=== PATIENT | male | born 1955 | race Caucasian/White ===

== ENCOUNTER → 2019-03-23 | Outpatient (CLI) | payer MEDICARE | END | disposition home or self-care (01) | LOC: LABWHC1 10:32 | PROVIDERS: ATTEND Urology | DX: C61 Malignant neoplasm of prostate (principal) | CPT/HCPCS: 36415; 84153 ==

== ENCOUNTER → 2020-04-24 | Outpatient (CLI) | payer MEDICARE | END | disposition home or self-care (01) | LOC: LABWHC1 10:10 | PROVIDERS: ATTEND Urology | DX: C61 Malignant neoplasm of prostate (principal) | CPT/HCPCS: 36415; 84153 ==

== ENCOUNTER → 2021-04-29 | Outpatient (CLI) | payer MEDICARE | END | disposition home or self-care (01) | LOC: LABWHC1 09:40 | PROVIDERS: ATTEND Urology | DX: C61 Malignant neoplasm of prostate (principal) | CPT/HCPCS: 36415; 84153 ==

== ENCOUNTER → 2022-03-17 | Outpatient (CLI) | payer MEDICARE | END | disposition home or self-care (01) | LOC: LABWHC1 11:20 | PROVIDERS: ATTEND Internal Medicine | DX: U07.1 COVID-19 (principal) | CPT/HCPCS: U0003; C9803; U0005 ==

== ENCOUNTER → 2022-06-08 | Outpatient (CLI) | payer MEDICARE | END | disposition home or self-care (01) | LOC: LABWHC1 13:16 | PROVIDERS: ATTEND Urology | DX: C61 Malignant neoplasm of prostate (principal) | CPT/HCPCS: 36415; 84153 ==

== ENCOUNTER → 2023-06-14 | Outpatient (CLI) | payer MEDICARE | END | disposition home or self-care (01) | LOC: LABWHC1 14:04 | PROVIDERS: ATTEND Urology | DX: C61 Malignant neoplasm of prostate (principal) | CPT/HCPCS: 36415; 84153 ==

== ENCOUNTER → 2023-11-02 | Outpatient (CLI) | payer MEDICARE ==
--- NOTE | 2023-11-02 09:30 | US ---
EXAMINATION TYPE: US liver DATE OF EXAM: 11/02/2023 COMPARISON: NONE CLINICAL INDICATION: Male, 68 years old with history of R74.01 ELEVATION OF LEVELS OF LIVER TRANSAMIN ASE L; elevated liver enzymes TECHNIQUE: Multiple sonographic images of the right upper quadrant are obtained. FINDINGS: EXAM MEASUREMENTS: Liver Length: 16.6 cm Gallbladder Wall: 0.2 cm CBD: .5 cm Right Kidney: 8.7 x 4.1 x 4.8 cm Pancreas: Tail obscured by overlying bowel gas Liver: Increased echotexture. Gallbladder: No stones seen Evidence for sonographic Chuahan's sign: No CBD: wnl Right Kidney: Anechoic area lower pole 1.0 x 1.1 x 1.5 cm. IMPRESSION: Hepatic steatosis
== END | disposition home or self-care (01) ==
LOC: RADUSWWP 07:19
PROVIDERS: ATTEND Family Medicine
DX: K76.0 Fatty (change of) liver, not elsewhere classified (principal); R74.01 Elevation of levels of liver transaminase levels
CPT/HCPCS: 76705

== ENCOUNTER 2023-11-10 10:47 | Day surgery (SDC) | payer MEDICARE ==
[2023-11-09 12:28] VITALS: BMI 25.8
[~2023-11-10 10:47] MED LIST: LIDOCAINE 1% (10MG/ML) FOR IV START INTRADERMA PRN
[2023-11-10] MEDS: LACTATED RINGERS 1,000 ML IV SCH (11:14)
[2023-11-10 11:33] VITALS: TEMP 97.2
[2023-11-10] MEDS ORDERED: PROPOFOL 10 MG/ML 20 ML VIAL IV ONE (12:34)
--- NOTE | 2023-11-10 12:42 | P.PCN ---
Date of Procedure: 11/10/23 Procedure(s) Performed: BRIEF HISTORY: Patient is a 68-year-old, pleasant, white male male scheduled for an upper endoscopy as a part of evaluation of GERD and intermittent dysphagia to solids.. PROCEDURE PERFORMED: Esophagogastroduodenoscopy with biopsy. PREOPERATIVE DIAGNOSIS: GERD/intermittent dysphagia to solids. IV sedation per anesthesia. PROCEDURE: After informed consent was obtained, the patient was brought into the endoscopy unit. IV sedation was administered by Anesthesia under continuous monitoring. Initially the Olympus GIF-140 video endoscope was inserted into the mouth. Esophagus intubated without any difficulty. It was gradually advanced into the stomach and duodenum and carefully examined. The bulb and the second part of the duodenum appeared normal. The scope at this time was withdrawn to the stomach, adequately insufflated with air, and upon careful examination, mucosa of the antrum, body, cardia and the fundus appeared normal. The scope was then withdrawn into the esophagus. Mall hiatal hernia noted. The GE junction was located at 39 cm from the incisors. The esophagus appeared normal. There were no erosions or ulcerations seen and the patient tolerated the procedure well. IMPRESSION: 1. Small hiatal hernia. 2. No evidence of esophagitis or esophageal stricture. RECOMMENDATIONS: The findings of this examination were discussed with the patient as well as his family. He was advised to follow with the biopsy results. Continue with omeprazole 20 mg daily and follow antireflux measures..
[2023-11-10 13:24] VITALS: BP 143/86; PULSE 62
[2023-11-10 13:25] VITALS: RESP 16
== END 2023-11-10 13:43 | disposition home or self-care (01) ==
LOC: ORWHC2ENDO 10:47
PROVIDERS: ATTEND Internal Medicine Gastroenterology
DX: K21.00 Gastro-esophageal reflux disease with esophagitis, without bleeding (principal); K44.9 Diaphragmatic hernia without obstruction or gangrene; E78.5 Hyperlipidemia, unspecified; J44.89 Other specified chronic obstructive pulmonary disease; Z79.899 Other long term (current) drug therapy; Z88.1 Allergy status to other antibiotic agents; Z79.51 Long term (current) use of inhaled steroids
CPT/HCPCS: 88305; 43239; J2704

== ENCOUNTER 2024-01-23 22:10 | Emergency (ER) | payer MEDICARE ==
[2024-01-23 22:15] VITALS: TEMP 97.8
--- NOTE | 2024-01-23 22:48 | XR ---
EXAMINATION TYPE: XR chest 2V DATE OF EXAM: 01/23/2024 COMPARISON: NONE HISTORY: Dysrhythmia. TECHNIQUE: Frontal and lateral views of the chest are obtained. FINDINGS: Underlying emphysematous changes are present. There is no focal air space opacity, pleural effusion, or pneumothorax seen. The cardiac silhouette size is within normal limits. The osseous structures are intact. IMPRESSION: Chronic emphysematous changes without acute pulmonary process.
[2024-01-23 22:53] LABS: Basophils % (A) 1 %; Eosinophils # (A) 0.5 k/uL (0-0.7); Eosinophils % (A) 5 %; HCT 43.4 % (39.0-53.0); HGB 14.5 gm/dL (13.0-17.5); Lymphocytes # (A) 1.3 k/uL (1.0-4.8); Lymphocytes % (A) 15 %; MCH 36.1 pg (25.0-35.0); MCHC 33.4 g/dL (31.0-37.0); MCV 107.9 fL (80.0-100.0); Macrocytosis Moderate; Mean Platelet Volume 7.2; Monocytes # (A) 0.5 k/uL (0-1.0); Monocytes % (A) 6 %; Neutrophils # (A) 6.1 k/uL (1.3-7.7); Neutrophils % (A) 72 %; Platelet Count 258 k/uL (150-450); RBC 4.02 m/uL (4.30-5.90); WBC 8.6 k/uL (3.8-10.6)
[2024-01-23 23:01] LABS: INR 0.8 (<1.2); Partial Thromboplastin Time 23.4 sec (22.0-30.0); Prothrombin Time 9.5 sec (10.0-12.5)
[2024-01-23 23:09] LABS: ALT 54 U/L (4-49); African American GFR (CKD) 88 (>60 ml/min/1.73 sqM); Albumin 4.4 g/dL (3.5-5.0); Anion Gap 6 mmol/L; Blood Urea Nitrogen 15 mg/dL (9-20); Calcium 9.5 mg/dL (8.4-10.2); Carbon Dioxide 23 mmol/L (22-30); Chloride 104 mmol/L (98-107); Glucose 104 mg/dL (74-99); Non-African American GFR(CKD) 76 (>60 ml/min/1.73 sqM); Sodium 133 mmol/L (137-145); Total Bilirubin 0.8 mg/dL (0.2-1.3); Total Protein 6.8 g/dL (6.3-8.2)
[2024-01-23 23:14] LABS: AST 56 U/L (17-59); Alkaline Phosphatase 71 U/L (38-126); Potassium 4.2 mmol/L (3.5-5.1)
[2024-01-23] MEDS: methylPREDNISolone SOD SUCCI 125 MG/2 ML VIAL IV STA (23:44)
[2024-01-23] MEDS: SODIUM CHLORIDE 0.9% 1,000 ML IV STA (23:45)
[2024-01-23] MEDS: LORazepam 2 MG/ML INJ IV STA (23:45)
[2024-01-24 00:12] VITALS: BP 138/86; RESP 18
[2024-01-24] MEDS: IPRATROPIUM-ALBUTEROL 3 ML NEB INHALATION STA (00:25)
[2024-01-24 00:38] VITALS: PULSE 56
--- NOTE | 2024-01-24 00:46 | ED ---
General Adult HPI - General Chief complaint: Arrhythmia/Palpitations Stated complaint: High Heart Rate SOB Time Seen by Provider: 01/23/24 22:41 Source: patient, RN notes reviewed, old records reviewed Mode of arrival: ambulatory Limitations: no limitations - History of Present Illness Initial comments: Is a 69-year-old male who presents emergency department complaining of palpitations. They have been on and off for the last few months since he lost his . Patient's 3 months ago. States he has been drinking little bit more than normal, and also feels intermittently anxious. Has a history of asthma. Is chronically on inhalers at home. No cardiac history. Denies any matt chest pain. Denies any shortness of breath. Endorses chronic productive cough of white mucus. States symptoms have been worse when he is resting and improves when he is keeping busy. Is currently going through the process of selling his home and moving closer to family. States the symptoms have been somewhat worse over the last few days which is why presents for further evaluation at this time. Workup started in triage. I evaluated him when he was placed in a room. - Related Data Home Medications Medication Instructions Recorded Confirmed Albuterol Sulfate [Proair Hfa] 2 puff INHALATION RT-Q6H PRN 03/12/16 11/10/23 Budesonide/Formoterol Fumarate 2 puff INHALATION RT-BID 03/12/16 11/10/23 [Symbicort 80-4.5 Mcg Inhaler] Atorvastatin [Lipitor] 20 mg PO DAILY 11/09/23 11/10/23 Multivitamins, Thera [Multivitamin 1 tab PO DAILY 11/09/23 11/10/23 (formulary)] Omeprazole 20 mg PO DAILY 11/09/23 11/10/23 Previous Rx's Medication Instructions Recorded Doxycycline [Vibramycin] 100 mg PO BID 7 Days #14 capsule 01/24/24 LORazepam [Ativan] 0.5 mg PO BID PRN 3 Days #6 tab 01/24/24 predniSONE [Deltasone] 40 mg PO DAILY 5 Days #10 tab 01/24/24 Allergies Allergy/AdvReac Type Severity Reaction Status Date / Time azithromycin Allergy Chest Pain Verified 11/10/23 11:11 [From Zithromax Z-Jc] Review of Systems ROS Statement: Those systems with pertinent positive or pertinent negative responses have been documented in the HPI. Review of Systems: CONST: Denies fever EYES: Denies blurry vision ENT: Denies nasal congestion C/V: Endorses palpitations RESP: Denies shortness of breath GI: Denies abdominal pain : Denies dysuria SKIN: Denies rash. MSK: Denies joint pain. NEURO: Denies headache ROS Other: All systems not noted in ROS Statement are negative. Past Medical History Past Medical History: Asthma, Cancer, GERD/Reflux, Hyperlipidemia, Prostate Disorder Additional Past Medical History / Comment(s): migraines, prostate cancer, constipation History of Any Multi-Drug Resistant Organisms: None Reported Past Surgical History: Hernia Repair, Orthopedic Surgery, Tonsillectomy Additional Past Surgical History / Comment(s): macho shoulder surgery, nasal tony yps removed Past Anesthesia/Blood Transfusion Reactions: No Reported Reaction Past Psychological History: No Psychological Hx Reported Smoking Status: Former smoker Past Alcohol Use History: Rare Past Drug Use History: None Reported - Past Family History Mother Family Medical History: Cancer General Exam - General Exam Comments Initial Comments: General: Appears anxious HEAD: Normal with no signs of head trauma. EYES: PERRLA, EOMI, conjunctiva normal, no discharge. ENT: Hearing grossly intact, normal oropharynx. RESPIRATORY: End expiratory wheezing. No hypoxia. No increased work of breathing. C/V: Regular rate and rhythm. S1 and S2 auscultated, no edema, peripheral pulses 2+ and intact throughout ABD: Abd is soft, nontender, nondistended EXT: Normal range of motion, no obvious deformity SKIN: No rashes or lesions observed on exposed skin. NEURO: Alert and oriented x 4. Limitations: no limitations Course Vital Signs 01/23/24 01/24/24 01/24/24 22:12 00:11 00:26 Temperature 97.8 F Pulse Rate 76 68 63 Respiratory 20 18 Rate Blood Pressure 160/83 138/86 O2 Sat by Pulse 98 100 Oximetry Medical Decision Making - Medical Decision Making Was pt. sent in by a medical professional or institution (, PA, DIRECTOR CARD, urgent care, hospital, or [facility]...) When possible be specific @ -No Did you speak to anyone other than the patient for history (EMS, parent, family, police, friend...)? What history was obtained from this source @ -No Did you review nursing and triage notes (agree or disagree)? Why? @ -I reviewed and agree with nursing and triage notes Were old charts reviewed (outside hosp., previous admission, EMS record, old EKG , old radiological studies, urgent care reports/EKG's, [facility] records)? Report findings @ -No old charts were reviewed Differential Diagnosis (chest pain, altered mental status, abdominal pain women, abdominal pain men, vaginal bleeding, weakness, fever, dyspnea, syncope, headache, dizziness, GI bleed, back pain, seizure, CVA, palpatations, mental health, musculoskeletal)? @ -Differential Palpitations Ventricular arrhythmias, atrial arrhythmias, myocardial infarction, anemia, thyrotoxicosis, electrolyte imbalance, hypokalemia, pulmonary embolism, pulmonary disease, drugs, alcohol, anxiety, stress.... This is not meant to be an all-inclusive list. EKG interpreted by me (3pts min.). @ -As above X-rays interpreted by me (1pt min.). @ -Chest x-ray reveals no obvious acute cardiopulmonary process. Chronic changes and emphysema present. CT interpreted by me (1pt min.). @ -None done U/S interpreted by me (1pt. min.). @ -None done What testing was considered but not performed or refused? (CT, X-rays, U/S, labs)? Why? @ -None What meds were considered but not given or refused? Why? @ -None Did you discuss the management of the patient with other professionals (professionals i.e. , PA, DIRECTOR CARD, lab, RT, psych nurse, manager social services, catering sales manager, teacher, escrow officer, binder caser)? Give summary @ -No Was smoking cessation discussed for >3mins.? @ -No Was critical care preformed (if so, how long)? @ -No Were there social determinants of health that impacted care today? How? (Homelessness, low income, unemployed, alcoholism, drug addiction, transportation, low edu. Level, literacy, decrease access to med. care, penitentiary, rehab)? @ -No Was there de-escalation of care discussed even if they declined (Discuss DNR or withdrawal of care, Hospice)? DNR status @ -No What co-morbidities impacted this encounter? (DM, HTN, Smoking, COPD, CAD, Cancer, CVA, ARF, Chemo, Hep., AIDS, mental health diagnosis, sleep apnea, morbid obesity)? @ -None Was patient admitted / discharged? Hospital course, mention meds given and route, prescriptions, significant lab abnormalities, going to OR and other pertinent info. @ -Patient presents with what appears to be anxiety as well as asthma. Has been having palpitations on and off worse when he is resting since his 3 months ago. Workup was started in triage and including cardiac workup. I am in agreement with this plan. Labs are pending. He will be symptomatically treat with IV Ativan, as well as Solu-Medrol, fluids. He will also be given a breathing treatment. Patient was in agreement this plan.Patient is not having any chest pain. Discomfort is purely palpitations. EKG shows no signs of acute ischemia. Chest x-ray unremarkable. Laboratory studies remarkable for an undetectable troponin. Remainder the labs unremarkable. On reevaluation, patient is feeling improved. Wheezing is improved. I discussed results with the patient. I strongly believe he is experiencing anxiety and he is in agreement with this. I recommended follow-up with his PCP and supported the decision to move closer to family. He was in agreement this plan. I will symptomatically treat him for asthma with a productive cough with a doxycycline as well as prednisone and he already has inhalers. He was in agreement this plan. He also be given a short course of Ativan prescription for home. He was in agreement this plan. I will provide the patient with a prescription for prednisone, Ativan, doxycycline. I instructed the patient to follow up with their PCP in the next 1- 3 days.. I explained that the patient should return to the emergency department if they experience any worsening symptoms. Strict return precautions were discussed with the patient. The patient expressed understanding of these instructions. I answered all questions that the patient had. The patient was discharged home in good condition with their prescriptions and follow up information. Undiagnosed new problem with uncertain prognosis? @ -No Drug Therapy requiring intensive monitoring for toxicity (Heparin, Nitro, Insulin, Cardizem)? @ -No Were any procedures done? @ -No Diagnosis/symptom? @ -Anxiety, heart palpitations, asthma exacerbation Acute, or Chronic, or Acute on Chronic? @ -Acute on chronic Uncomplicated (without systemic symptoms) or Complicated (systemic symptoms)? @ -Complicated Side effects of treatment? @ -No Exacerbation, Progression, or Severe Exacerbation? @ -No Poses a threat to life or bodily function? How? (Chest pain, [place], [place], pneumonia, PE, COPD, DKA, ARF, appy, cholecystitis, CVA, Diverticulitis, Homicidal, Suicidal, threat to staff... and all critical care pts) @ -Unlikely - Lab Data Result diagrams: 01/23/24 22:17 01/23/24 22:17 Lab Results 01/23/24 01/23/24 01/23/24 Range/Units 22:17 22:17 22:17 WBC 8.6 (3.8-10.6) k/uL RBC 4.02 L (4.30-5.90) m/uL Hgb 14.5 (13.0-17.5) gm/dL Hct 43.4 (39.0-53.0) % MCV 107.9 H (80.0-100.0) fL MCH 36.1 H (25.0-35.0) pg MCHC 33.4 (31.0-37.0) g/dL RDW 13.0 (11.5-15.5) % Plt Count 258 (150-450) k/uL MPV 7.2 Neutrophils % 72 % Lymphocytes % 15 % Monocytes % 6 % Eosinophils % 5 % Basophils % 1 % Neutrophils # 6.1 (1.3-7.7) k/uL Lymphocytes # 1.3 (1.0-4.8) k/uL Monocytes # 0.5 (0-1.0) k/uL Eosinophils # 0.5 (0-0.7) k/uL Basophils # 0.0 (0-0.2) k/uL Macrocytosis Moderate PT 9.5 L (10.0-12.5) sec INR 0.8 (<1.2) APTT 23.4 (22.0-30.0) sec Sodium 133 L (137-145) mmol/L Potassium 4.2 (3.5-5.1) mmol/L Chloride 104 (98-107) mmol/L Carbon Dioxide 23 (22-30) mmol/L Anion Gap 6 mmol/L BUN 15 (9-20) mg/dL Creatinine 1.00 (0.66-1.25) mg/dL Est GFR (CKD-EPI)AfAm 88 (>60 ml/min/1.73 sqM) Est GFR (CKD-EPI)NonAf 76 (>60 ml/min/1.73 sqM) Glucose 104 H (74-99) mg/dL Calcium 9.5 (8.4-10.2) mg/dL Magnesium 2.0 (1.6-2.3) mg/dL Total Bilirubin 0.8 (0.2-1.3) mg/dL AST 56 (17-59) U/L ALT 54 H (4-49) U/L Alkaline Phosphatase 71 (38-126) U/L Troponin I (0.000-0.034) ng/mL Total Protein 6.8 (6.3-8.2) g/dL Albumin 4.4 (3.5-5.0) g/dL 01/23/24 Range/Units 22:17 WBC (3.8-10.6) k/uL RBC (4.30-5.90) m/uL Hgb (13.0-17.5) gm/dL Hct (39.0-53.0) % MCV (80.0-100.0) fL MCH (25.0-35.0) pg MCHC (31.0-37.0) g/dL RDW (11.5-15.5) % Plt Count (150-450) k/uL MPV Neutrophils % % Lymphocytes % % Monocytes % % Eosinophils % % Basophils % % Neutrophils # (1.3-7.7) k/uL Lymphocytes # (1.0-4.8) k/uL Monocytes # (0-1.0) k/uL Eosinophils # (0-0.7) k/uL Basophils # (0-0.2) k/uL Macrocytosis PT (10.0-12.5) sec INR (<1.2) APTT (22.0-30.0) sec Sodium (137-145) mmol/L Potassium (3.5-5.1) mmol/L Chloride (98-107) mmol/L Carbon Dioxide (22-30) mmol/L Anion Gap mmol/L BUN (9-20) mg/dL Creatinine (0.66-1.25) mg/dL Est GFR (CKD-EPI)AfAm (>60 ml/min/1.73 sqM) Est GFR (CKD-EPI)NonAf (>60 ml/min/1.73 sqM) Glucose (74-99) mg/dL Calcium (8.4-10.2) mg/dL Magnesium (1.6-2.3) mg/dL Total Bilirubin (0.2-1.3) mg/dL AST (17-59) U/L ALT (4-49) U/L Alkaline Phosphatase (38-126) U/L Troponin I <0.012 (0.000-0.034) ng/mL Total Protein (6.3-8.2) g/dL Albumin (3.5-5.0) g/dL - EKG Data -: EKG Interpreted by Me EKG Comments: 12-lead Electrocardiogram Interpretation Note EKG was reviewed and interpreted by myself. 12-lead ECG performed at 2309 is interpreted by me as revealing normal sinus rhythm at a rate of 61 beats per minute. [place] is normal. DE interval is 161 ms, QRS duration is 101 ms, QTc is 428 ms.. There were no ST or T wave abnormalities to suggest myocardial ischemia or injury. R wave progression across the precordium was satisfactory. By my interpretation this EKG is non-diagnostic for acute ischemia. Disposition Clinical Impression: Heart palpitations, Asthma, Anxiety Disposition: HOME SELF-CARE Condition: Good Instructions (If sedation given, give patient instructions): Heart Palpitations (ED), Asthma (ED), Anxiety (ED) Prescriptions: LORazepam [Ativan] 0.5 mg PO BID PRN 3 Days #6 tab PRN Reason: Anxiety predniSONE [Deltasone] 40 mg PO DAILY 5 Days #10 tab Doxycycline [Vibramycin] 100 mg PO BID 7 Days #14 capsule Is patient prescribed a controlled substance at d/c from ED?: No Referrals: Bulmaro Dudley MD [Primary Care Provider] - 1-2 days Forms: Outpatient Therapy List Time of Disposition: 00:40
--- NOTE | 2024-01-24 00:48 | ED ---
Medical Decision Making - Lab Data Result diagrams: 01/23/24 22:17 01/23/24 22:17 Lab Results 01/23/24 01/23/24 01/23/24 Range/Units 22:17 22:17 22:17 WBC 8.6 (3.8-10.6) k/uL RBC 4.02 L (4.30-5.90) m/uL Hgb 14.5 (13.0-17.5) gm/dL Hct 43.4 (39.0-53.0) % MCV 107.9 H (80.0-100.0) fL MCH 36.1 H (25.0-35.0) pg MCHC 33.4 (31.0-37.0) g/dL RDW 13.0 (11.5-15.5) % Plt Count 258 (150-450) k/uL MPV 7.2 Neutrophils % 72 % Lymphocytes % 15 % Monocytes % 6 % Eosinophils % 5 % Basophils % 1 % Neutrophils # 6.1 (1.3-7.7) k/uL Lymphocytes # 1.3 (1.0-4.8) k/uL Monocytes # 0.5 (0-1.0) k/uL Eosinophils # 0.5 (0-0.7) k/uL Basophils # 0.0 (0-0.2) k/uL Macrocytosis Moderate PT 9.5 L (10.0-12.5) sec INR 0.8 (<1.2) APTT 23.4 (22.0-30.0) sec Sodium 133 L (137-145) mmol/L Potassium 4.2 (3.5-5.1) mmol/L Chloride 104 (98-107) mmol/L Carbon Dioxide 23 (22-30) mmol/L Anion Gap 6 mmol/L BUN 15 (9-20) mg/dL Creatinine 1.00 (0.66-1.25) mg/dL Est GFR (CKD-EPI)AfAm 88 (>60 ml/min/1.73 sqM) Est GFR (CKD-EPI)NonAf 76 (>60 ml/min/1.73 sqM) Glucose 104 H (74-99) mg/dL Calcium 9.5 (8.4-10.2) mg/dL Magnesium 2.0 (1.6-2.3) mg/dL Total Bilirubin 0.8 (0.2-1.3) mg/dL AST 56 (17-59) U/L ALT 54 H (4-49) U/L Alkaline Phosphatase 71 (38-126) U/L Troponin I (0.000-0.034) ng/mL Total Protein 6.8 (6.3-8.2) g/dL Albumin 4.4 (3.5-5.0) g/dL 01/23/24 Range/Units 22:17 WBC (3.8-10.6) k/uL RBC (4.30-5.90) m/uL Hgb (13.0-17.5) gm/dL Hct (39.0-53.0) % MCV (80.0-100.0) fL MCH (25.0-35.0) pg MCHC (31.0-37.0) g/dL RDW (11.5-15.5) % Plt Count (150-450) k/uL MPV Neutrophils % % Lymphocytes % % Monocytes % % Eosinophils % % Basophils % % Neutrophils # (1.3-7.7) k/uL Lymphocytes # (1.0-4.8) k/uL Monocytes # (0-1.0) k/uL Eosinophils # (0-0.7) k/uL Basophils # (0-0.2) k/uL Macrocytosis PT (10.0-12.5) sec INR (<1.2) APTT (22.0-30.0) sec Sodium (137-145) mmol/L Potassium (3.5-5.1) mmol/L Chloride (98-107) mmol/L Carbon Dioxide (22-30) mmol/L Anion Gap mmol/L BUN (9-20) mg/dL Creatinine (0.66-1.25) mg/dL Est GFR (CKD-EPI)AfAm (>60 ml/min/1.73 sqM) Est GFR (CKD-EPI)NonAf (>60 ml/min/1.73 sqM) Glucose (74-99) mg/dL Calcium (8.4-10.2) mg/dL Magnesium (1.6-2.3) mg/dL Total Bilirubin (0.2-1.3) mg/dL AST (17-59) U/L ALT (4-49) U/L Alkaline Phosphatase (38-126) U/L Troponin I <0.012 (0.000-0.034) ng/mL Total Protein (6.3-8.2) g/dL Albumin (3.5-5.0) g/dL Disposition Clinical Impression: Heart palpitations, Asthma, Anxiety Disposition: HOME SELF-CARE Condition: Good Instructions (If sedation given, give patient instructions): Heart Palpitations (ED), Asthma (ED), Anxiety (ED) Prescriptions: LORazepam [Ativan] 0.5 mg PO BID PRN 3 Days #6 tab PRN Reason: Anxiety predniSONE [Deltasone] 40 mg PO DAILY 5 Days #10 tab Doxycycline [Vibramycin] 100 mg PO BID 7 Days #14 capsule Is patient prescribed a controlled substance at d/c from ED?: Yes When asked, does pt state using other controlled substances?: No If prescribed controlled substance>3 days was MAPS reviewed?: Prescribed <3 Days Referrals: Bulmaro Dudley MD [Primary Care Provider] - 1-2 days Forms: Outpatient Therapy List
[2024-01-24] MEDS: DOXYCYCLINE 100 MG CAP PO STA (01:04)
== END 2024-01-24 01:05 | disposition home or self-care (01) ==
LOC: EC 22:10
DX: R11.2 Nausea with vomiting, unspecified (principal); F17.200 Nicotine dependence, unspecified, uncomplicated; F12.90 Cannabis use, unspecified, uncomplicated
CPT/HCPCS: 36415; 94640; 93005; 80053; 83735; 84484; 85025; 85610; 85730; 71046; 99284; 96374; 96375; 96376; 96361; J2060; J2919

== ENCOUNTER 2024-05-13 16:31 | Emergency (ER) | payer MEDICARE ==
[2024-05-13] MEDS: KETOROLAC 15 MG/ML 1 ML VIAL IM STA (17:07)
[2024-05-13] MEDS: methocarbamoL 500 MG TAB PO STA (17:07)
[2024-05-13] MEDS: LIDOCAINE 4% PATCH TOPICAL ONE (17:09)
--- NOTE | 2024-05-13 17:37 | CT ---
EXAMINATION TYPE: CT abdomen pelvis wo con CT DLP: 441.1 mGycm, Automated exposure control for dose reduction was used. DATE OF EXAM: 05/13/2024 5:22 PM COMPARISON: Ultrasound 11/02/2023 CLINICAL INDICATION: Male, 69 years old with history of Right flank pain; Right flank pain x 3 days TECHNIQUE: Axial CT abdomen pelvis wo con;Sagittal and coronal reformats were created on a separate workstation. Contrast used: mL of , (none if empty) Oral contrast used: without Oral Contrast (none if empty) FINDINGS: LOWER CHEST: Which valve annular calcifications. ABDOMEN LIVER: Diffusely hypoattenuating parenchyma. GALLBLADDER AND BILE DUCTS: Unremarkable. PANCREAS: Unremarkable. SPLEEN: Unremarkable. ADRENAL GLANDS: Unremarkable. KIDNEYS AND URETERS: No evidence of hydronephrosis or renal calculus. The ureters are unremarkable. Probable left exophytic renal cyst. PELVIS BLADDER: Unremarkable mild circumferential wall thickening with some adjacent fat stranding. REPRODUCTIVE: Unremarkable. ABDOMEN & PELVIS STOMACH AND BOWEL: No evidence of bowel obstruction. The appendix is normal PERITONEUM/RETROPERITONEUM: No evidence of pneumoperitoneum or free fluid. VASCULATURE: Fusiform dilation of the infrarenal abdominal aorta measuring up to 31 mm. MUSCULOSKELETAL: No acute osseous abnormalities. Mild disc degeneration changes are present throughou t the thoracolumbar spine. LYMPH NODES: No gross evidence for lymphadenopathy. SOFT TISSUE/ABDOMINAL WALL: Fat-containing umbilical hernia. IMPRESSION: 1. Mild Fat stranding changes around the urinary bladder correlate with urinalysis for cystitis. No additional evidence for acute right abdominal process to explain the patient's pain, the appendix is normal, no obstructive uropathy. No renal calculi visualized. 2. Infrarenal abdominal aortic aneurysmal dilation up to 31 mm. 3. Mild hepatic steatosis. [facility], , 05/13/2024 5:34 PM
--- NOTE | 2024-05-13 17:52 | ED ---
Back Pain HPI - General Chief Complaint: Back Pain/Injury Stated Complaint: back pain Time Seen by Provider: 05/13/24 16:46 Source: patient, RN notes reviewed Mode of arrival: ambulatory Limitations: no limitations - History of Present Illness Initial Comments: This is a 69-year-old male who presents to the emergency department for right mid back pain. States that it started 2 days ago, but seemed to get worse. He has been doing a lot of bending and lifting because he is in the process of moving, and wonders if he may have strained a muscle. Pain does not wrap around into the abdomen. Denies any nausea or vomiting. Denies any loss of bowel/bladder control. He has not yet taken anything for his pain. MD Complaint: back pain - Related Data Home Medications Medication Instructions Recorded Confirmed Albuterol Sulfate [Proair Hfa] 2 puff INHALATION RT-Q6H PRN 03/12/16 11/10/23 Budesonide/Formoterol Fumarate 2 puff INHALATION RT-BID 03/12/16 11/10/23 [Symbicort 80-4.5 Mcg Inhaler] Atorvastatin [Lipitor] 20 mg PO DAILY 11/09/23 11/10/23 Multivitamins, Thera [Multivitamin 1 tab PO DAILY 11/09/23 11/10/23 (formulary)] Omeprazole 20 mg PO DAILY 11/09/23 11/10/23 Previous Rx's Medication Instructions Recorded Doxycycline [Vibramycin] 100 mg PO BID 7 Days #14 capsule 01/24/24 LORazepam [Ativan] 0.5 mg PO BID PRN 3 Days #6 tab 01/24/24 predniSONE [Deltasone] 40 mg PO DAILY 5 Days #10 tab 01/24/24 Lidocaine 5% Patch [Lidoderm 5% 1 patch TOPICAL DAILY PRN #30 patch 05/13/24 Patch] Meloxicam [Mobic] 15 mg PO DAILY PRN #30 tab 05/13/24 methocarbamoL [Robaxin-750] 1,500 mg PO TID PRN #30 tab 05/13/24 Allergies Allergy/AdvReac Type Severity Reaction Status Date / Time azithromycin Allergy Chest Pain Verified 05/13/24 16:40 [From Zithromax Z-Jc] Review of Systems ROS Statement: Those systems with pertinent positive or pertinent negative responses have been documented in the HPI. ROS Other: All systems not noted in ROS Statement are negative. Past Medical History Past Medical History: Asthma, Cancer, GERD/Reflux, Hyperlipidemia, Prostate Disorder Additional Past Medical History / Comment(s): migraines, prostate cancer, constipation History of Any Multi-Drug Resistant Organisms: None Reported Past Surgical History: Hernia Repair, Orthopedic Surgery, Tonsillectomy Additional Past Surgical History / Comment(s): macho shoulder surgery, nasal polyps removed Past Anesthesia/Blood Transfusion Reactions: No Reported Reaction Past Psychological History: No Psychological Hx Reported Smoking Status: Former smoker Past Alcohol Use History: Rare Past Drug Use History: None Reported - Past Family History Mother Family Medical History: Cancer General Exam Limitations: no limitations General appearance: alert, in no apparent distress Head exam: Present: atraumatic, normocephalic, normal inspection Respiratory exam: Present: normal lung sounds bilaterally. Absent: respiratory distress, wheezes, rales, rhonchi, stridor Cardiovascular Exam: Present: regular rate, normal rhythm, normal heart sounds. Absent: systolic murmur, diastolic murmur, rubs, gallop, clicks GI/Abdominal exam: Present: soft, normal bowel sounds. Absent: distended, tenderness, guarding, rebound, rigid Back exam: Present: CVA tenderness (R). Absent: CVA tenderness (L) Neurological exam: Present: alert, oriented X3, CN II-XII intact Psychiatric exam: Present: normal affect, normal mood Skin exam: Present: warm, dry, intact, normal color. Absent: rash Course Vital Signs 05/13/24 05/13/24 16:36 18:36 Temperature 97.9 F 98.0 F Pulse Rate 107 H 86 Respiratory 16 18 Rate Blood Pressure 126/69 130/76 O2 Sat by Pulse 96 97 Oximetry Medical Decision Making - Medical Decision Making This is a 69-year-old male who presents to the emergency department for back pain. Was pt. sent in by a medical professional or institution? @ -No Did you speak to anyone other than the patient for history? @ -No Did you review nursing and triage notes? @ -Yes, and I agree, it is accurate with regards to the patient's symptoms. Were old charts reviewed? @ -No Differential Diagnosis? @ -Differential Back Pain: Strain, zoster, cauda equina syndrome, epidural abscess, vertebral osteomyelitis, discitis, fracture, subluxation, disc herniation, DJD, spinal stenosis, dissection, AAA, pancreatitis, peptic ulcer disease, pyelonephritis, kidney stone, this is not meant to be an all-inclusive list. EKG interpreted by me (3pts min.)? @ -Not obtained X-rays interpreted by me (1pt min.)? @ -Not obtained CT interpreted by me (1pt min.)? @ -CT scan of the abdomen and pelvis obtained. My interpretation identifies no evidence of a ureteral calculus. U/S interpreted by me (1pt. min.)? @ -Not obtained What testing was considered but not performed? (CT, X-rays, U/S, labs)? Why? @ -None What meds were considered but not given? Why? @ -None Did you discuss the management of the patient with other professionals? @ -No Did you reconcile home meds? @ -No Was smoking cessation discussed for >3mins.? @ -No Was critical care preformed (if so, how long)? @ -No Were there social determinants of health that impacted care today? How? (Homelessness, low income, unemployed, alcoholism, drug addiction, transportation, low edu. Level, literacy, decrease access to med. care, assisted, rehab)? @ -No Was there de-escalation of care discussed even if they declined? (Discuss DNR or withdrawal of care, Hospice)? @ -No What co-morbidities impacted this encounter? (DM, HTN, Smoking, COPD, CAD, Cancer, CVA, Hep., AIDS, mental health diagnosis, sleep apnea, morbid obesity)? @ -None Was patient admitted / discharged? @ -Discharged. Given that pain was in the right flank region, we obtained a urinalysis and CT scan. Urinalysis was negative for signs of infection. Moderate blood was noted, however there was no elevation in RBCs. CT scan of the abdomen and pelvis had some changes around the bladder and they advised correlation for cystitis on UA. UA was negative for signs of infection. No other acute process was identified. Given that symptoms are worse with movement and to the touch, and started after doing a lot of physical activity in the process of moving, advised that this is likely musculoskeletal in nature. Pain was managed in the emergency department. Prescription for Mobic, Robaxin, and lidocaine patches provided. Patient discharged home in stable condition. Case discussed with ED attending Dr. Capone. Return precautions reviewed in depth, the patient is instructed to return to the emergency department with any new, worsening, or concerning symptoms. Patient verbalized understanding. Undiagnosed new problem with uncertain prognosis? @ -None Drug Therapy requiring intensive monitoring for toxicity (Heparin, Nitro, Insulin, Cardizem)? @ -None Were any procedures done? @ -None Diagnosis/symptom? @ -Back strain Acute, or Chronic, or Acute on Chronic? @ -Acute Uncomplicated (without systemic symptoms) or Complicated (systemic symptoms)? @ -Uncomplicated Side effects of treatment? @ -None Exacerbation, Progression, or Severe Exacerbation] @ -Not applicable Poses a threat to life or bodily function? @ -No - Lab Data Lab Results 05/13/24 Range/Units 18:00 Urine Color Yellow Urine Appearance Cloudy (Clear) Urine pH 5.0 (5.0-8.0) Ur Specific [place] 1.019 (1.001-1.035) Urine Protein Trace H (Negative) Urine Glucose (UA) Negative (Negative) Urine Ketones Trace H (Negative) Urine Blood Moderate H (Negative) Urine Nitrite Negative (Negative) Urine Bilirubin Negative (Negative) Urine Urobilinogen 2.0 (<2.0) mg/dL Ur Leukocyte Esterase Negative (Negative) Urine RBC 4 (0-5) /hpf Urine WBC 5 (0-5) /hpf Ur Squamous Epith Cells 1 (0-4) /hpf Hyaline Casts 91 H (0-2) /lpf Urine Mucus Many H (None) /hpf - Radiology Data Radiology results: report reviewed, image reviewed Disposition Clinical Impression: Back strain Disposition: HOME SELF-CARE Instructions (If sedation given, give patient instructions): Low Back Strain (ED), Thoracic Back Strain (ED) Additional Instructions: Return to the emergency department with any new, worsening, or concerning symptoms. Take the Mobic once daily for pain relief. Do not take any other anti-inflammatories such as ibuprofen if you choose to take this, take one or the other. You may take it with Tylenol. Take the Robaxin as 1 to 2 tablets up to 3-4 times daily. Be aware that this may make you drowsy. You can also apply the lidocaine patches daily. Follow up with your primary care provider in 1-2 days. Prescriptions: Lidocaine 5% Patch [Lidoderm 5% Patch] 1 patch TOPICAL DAILY PRN #30 patch PRN Reason: Pain Meloxicam [Mobic] 15 mg PO DAILY PRN #30 tab PRN Reason: Pain methocarbamoL [Robaxin-750] 1,500 mg PO TID PRN #30 tab PRN Reason: Pain Is patient prescribed a controlled substance at d/c from ED?: No Referrals: Bulmaro Dudley MD [Primary Care Provider] - 1-2 days Time of Disposition: 18:14
[2024-05-13 18:05] LABS: Appearance,Urine Cloudy (Clear); Bilirubin,Urine Negative (Negative); Blood,Urine Moderate (Negative); Color,Urine Yellow; Glucose,Urine (UA) Negative (Negative); Hyaline Casts,Urine 91 /lpf (0-2); Ketones,Urine Trace (Negative); Leukocyte Esterase,Urine Negative (Negative); Mucus,Urine Many /hpf; Nitrite,Urine Negative (Negative); Protein,Urine Trace (Negative); RBC,Urine 4 /hpf (0-5); Specific Gravity,Urine 1.019 (1.001-1.035); Squamous Epithelial Cell,Urine 1 /hpf (0-4); WBC,Urine 5 /hpf (0-5)
[2024-05-13] MEDS: DEXAMETHASONE SOD PHOSPHATE 10 MG/ML 1 ML VIAL IM STA (18:22)
[2024-05-13] MEDS: ACET/COD 300 MG/30 MG STARTER PACK 6 TAB BTL PO STA (18:22)
[2024-05-13 18:38] VITALS: BP 130/76; PULSE 86; RESP 18; TEMP 98
== END 2024-05-13 18:38 | disposition home or self-care (01) ==
LOC: EC 16:31
DX: R53.1 Weakness
CPT/HCPCS: 74176; 81001; 99284

== ENCOUNTER 2024-05-15 06:57 | Emergency (ER) | payer MEDICARE ==
[2024-05-15 07:03] VITALS: PULSE 76; RESP 18
--- NOTE | 2024-05-15 07:27 | ED ---
Back Pain HPI - General Chief Complaint: Back Pain/Injury Stated Complaint: Back Pain Time Seen by Provider: 05/15/24 07:10 Source: patient, RN notes reviewed Limitations: no limitations - History of Present Illness Initial Comments: 69-year-old male presents emergency department with chief complaint of low back pain. He was seen here few days ago for similar complaints. States that he has had increasing pain. He denies any bowel, bladder incontinence or retention no saddle anesthesias. Patient states that he has no pain at radiates down his legs he has no lower extremity weakness. Patient has no abdominal complaints. Patient offers no other complaints. - Related Data Home Medications Medication Instructions Recorded Confirmed Albuterol Sulfate [Proair Hfa] 2 puff INHALATION RT-Q6H PRN 03/12/16 11/10/23 Budesonide/Formoterol Fumarate 2 puff INHALATION RT-BID 03/12/16 11/10/23 [Symbicort 80-4.5 Mcg Inhaler] Atorvastatin [Lipitor] 20 mg PO DAILY 11/09/23 11/10/23 Multivitamins, Thera [Multivitamin 1 tab PO DAILY 11/09/23 11/10/23 (formulary)] Omeprazole 20 mg PO DAILY 11/09/23 11/10/23 Previous Rx's Medication Instructions Recorded Doxycycline [Vibramycin] 100 mg PO BID 7 Days #14 capsule 01/24/24 LORazepam [Ativan] 0.5 mg PO BID PRN 3 Days #6 tab 01/24/24 predniSONE [Deltasone] 40 mg PO DAILY 5 Days #10 tab 01/24/24 Lidocaine 5% Patch [Lidoderm 5% 1 patch TOPICAL DAILY PRN #30 patch 05/13/24 Patch] Meloxicam [Mobic] 15 mg PO DAILY PRN #30 tab 05/13/24 methocarbamoL [Robaxin-750] 1,500 mg PO TID PRN #30 tab 05/13/24 Allergies Allergy/AdvReac Type Severity Reaction Status Date / Time azithromycin Allergy Chest Pain Verified 05/15/24 07:00 [From Zithromax Z-Jc] Review of Systems ROS Statement: Those systems with pertinent positive or pertinent negative responses have been documented in the HPI. ROS Other: All systems not noted in ROS Statement are negative. Past Medical History Past Medical History: Asthma, Cancer, GERD/Reflux, Hyperlipidemia, Prostate Disorder Additional Past Medical History / Comment(s): migraines, prostate cancer, constipation History of Any Multi-Drug Resistant Organisms: None Reported Past Surgical History: Hernia Repair, Orthopedic Surgery, Tonsillectomy Additional Past Surgical History / Comment(s): macho shoulder surgery, nasal polyps removed Past Anesthesia/Blood Transfusion Reactions: No Reported Reaction Past Psychological History: No Psychological Hx Reported Smoking Status: Former smoker Past Alcohol Use History: Rare Past Drug Use History: None Reported - Past Family History Mother Family Medical History: Cancer General Exam Limitations: no limitations General appearance: alert, in no apparent distress Head exam: Present: atraumatic, normocephalic, normal inspection Respiratory exam: Present: normal lung sounds bilaterally. Absent: respiratory distress, wheezes, rales, rhonchi, stridor Cardiovascular Exam: Present: regular rate, normal rhythm, normal heart sounds. Absent: systolic murmur, diastolic murmur, rubs, gallop, clicks GI/Abdominal exam: Present: soft, normal bowel sounds. Absent: distended, tenderness, guarding, rebound, rigid Extremities exam: Present: normal inspection, full ROM, normal capillary refill. Absent: tenderness, pedal edema, joint swelling, calf tenderness Back exam: Present: normal inspection, full ROM, tenderness, paraspinal tenderness, vertebral tenderness Course Vital Signs 05/15/24 07:01 Temperature 97.4 F L Pulse Rate 76 Respiratory 18 Rate Blood Pressure 127/75 O2 Sat by Pulse 96 Oximetry Medical Decision Making - Medical Decision Making Was pt. sent in by a medical professional or institution (, PA, PRICING INTERN, urgent care, hospital, or long term...) When possible be specific @ -No Did you speak to anyone other than the patient for history (EMS, parent, family, police, friend...)? What history was obtained from this source @ -No Did you review nursing and triage notes (agree or disagree)? Why? @ -I reviewed and agree with nursing and triage notes Were old charts reviewed (outside hosp., previous admission, EMS record, old EKG, old radiological studies, urgent care reports/EKG's, long term records)? Report findings @Views CT from 2 days ago Differential Diagnosis (chest pain, altered mental status, abdominal pain women, abdominal pain men, vaginal bleeding, weakness, fever, dyspnea, syncope, headache, dizziness, GI bleed, back pain, seizure, CVA, palpatations, mental health, musculoskeletal)? @ -Differential Back Pain: Strain, zoster, cauda equina syndrome, epidural abscess, vertebral osteomyelitis, discitis, fracture, subluxation, disc herniation, DJD, spinal stenosis, dissection, AAA, pancreatitis, peptic ulcer disease, pyelonephritis, kidney stone, this is not meant to be an all-inclusive list. EKG interpreted by me (3pts min.). @ -None X-rays interpreted by me (1pt min.). @ -None done CT interpreted by me (1pt min.). @ -None done U/S interpreted by me (1pt. min.). @ -None done What testing was considered but not performed or refused? (CT, X-rays, U/S, labs)? Why? @ -None What meds were considered but not given or refused? Why? @ -None Did you discuss the management of the patient with other professionals (professionals i.e. , PA, PRICING INTERN, lab, RT, psych nurse, psychotherapist social worker, lawyers, teacher, disbursing officer, block and case maker)? Give summary @ -No Was smoking cessation discussed for >3mins.? @ -No Was critical care preformed (if so, how long)? @ -No Were there social determinants of health that impacted care today? How? (Homelessness, low income, unemployed, alcoholism, drug addiction, transportation, low edu. Level, literacy, decrease access to med. care, residential, rehab)? @ -No Was there de-escalation of care discussed even if they declined (Discuss DNR or withdrawal of care, Hospice)? DNR status @ -No What co-morbidities impacted this encounter? (DM, HTN, Smoking, COPD, CAD, Cancer, CVA, ARF, Chemo, Hep., AIDS, mental health diagnosis, sleep apnea, morbid obesity)? @ -None Was patient admitted / discharged? Hospital course, mention meds given and route, prescriptions, significant lab abnormalities, going to OR and other pertinent info. @ -[Discharge patient has lumbar strain he has no red flag symptoms. Patient discharged in stable condition return parameters discussed. Undiagnosed new problem with uncertain prognosis? @ -No Drug Therapy requiring intensive monitoring for toxicity (Heparin, Nitro, Insulin, Cardizem)? @ -No Were any procedures done? @ -No Diagnosis/symptom? @ -Lumbar strain Acute, or Chronic, or Acute on Chronic? @ -Acute Uncomplicated (without systemic symptoms) or Complicated (systemic symptoms)? @ -uncomplicated Side effects of treatment? @ -No Exacerbation, Progression, or Severe Exacerbation? @ -No Poses a threat to life or bodily function? How? (Chest pain, [place], [place], pneumonia, PE, COPD, DKA, ARF, appy, cholecystitis, CVA, Diverticulitis, Homicidal, Suicidal, threat to staff... and all critical care pts) @ -No Disposition Clinical Impression: Strain of lumbar region Disposition: HOME SELF-CARE Condition: Stable Instructions (If sedation given, give patient instructions): Acute Low Back Pain (ED) Additional Instructions: Please return to the Emergency Department if symptoms worsen or any other concerns. Is patient prescribed a controlled substance at d/c from ED?: No Referrals: Bulmaro Dudley MD [Primary Care Provider] - 1-2 days Time of Disposition: 07:27
[2024-05-15] MEDS: KETOROLAC 15 MG/ML 1 ML VIAL IM STA (07:33)
[2024-05-15] MEDS: LIDOCAINE 4% PATCH TOPICAL ONE (07:34)
[2024-05-15 07:41] VITALS: BP 130/74; TEMP 98.1
== END 2024-05-15 07:41 | disposition home or self-care (01) ==
LOC: EC 06:57
CPT/HCPCS: 96372; 99283

== ENCOUNTER → 2024-07-07 | Outpatient (CLI) | payer MEDICARE | END | disposition home or self-care (01) | LOC: LABWHC1 11:13 | PROVIDERS: ATTEND Urology | DX: C61 Malignant neoplasm of prostate (principal) | CPT/HCPCS: 36415; 84153 ==